=== PATIENT | female | born 1975 | race Asian ===

== ENCOUNTER 2020-08-28 04:47 | Inpatient (IN) | payer OTHER ==
[2020-08-27 11:27] VITALS: BMI 23.4
--- NOTE | 2020-08-28 07:38 | HP ---
History & Physical Update - History History: No Change - Physical Physical: No Change - Assessment Assessment: No Change - Plan Plan: No Change (S&P reviwed , no cahnges , for supracervical abdominal hyst erectomy, bilateral salpingectomy)
[2020-08-28] MEDS ORDERED: BUPIVACAINE LIPOSOME/PF (EXPAREL) 266 MG/20 ML VIAL ONE (10:22)
[2020-08-28] MEDS ORDERED: MIDAZOLAM HCL 2 MG/2 ML SINGLE DOSE VIAL ONE ×2 (10:24)
[2020-08-28] MEDS ORDERED: ROCURONIUM BROMIDE 100 MG/10 ML VIAL ONE (11:34)
[2020-08-28] MEDS ORDERED: LIDOCAINE HCL/PF 2% SDV 5ML VIAL ONE (11:36)
[2020-08-28] MEDS ORDERED: ceFAZolin SODIUM 1 GM VIAL IVPB ONE (11:50)
[2020-08-28] MEDS ORDERED: DEXAMETHASONE SOD PHOSPHATE 4 MG/1 ML VIAL ONE (11:56)
[2020-08-28] MEDS ORDERED: ceFAZolin SODIUM 1 GM VIAL ONE ×2 (11:58→17:28)
[2020-08-28] MEDS ORDERED: GLYCOPYRROLATE 0.2 MG/1 ML VIAL ONE (12:19)
[2020-08-28] MEDS ORDERED: NEOSTIGMINE METHYLSULFATE 0.5 MG/ML - 10 ML MDV ONE (12:19)
[2020-08-28] MEDS ORDERED: ONDANSETRON 4 MG/2 ML VIAL IVPUSH PRN ×2 (12:32→13:30)
[2020-08-28] MEDS ORDERED: ACETAMINOPHEN 325 MG TABLET (FP) PO PRN (12:32)
[2020-08-28] MEDS ORDERED: LACTATED RINGERS SOLUTION 1,000 ML IV SCH (12:45)
[2020-08-28] MEDS ORDERED: traMADol HCL 50 MG TABLET PO PRN (12:45)
[2020-08-28] MEDS ORDERED: oxyCODONE HCL 5 MG TABLET PO PRN ×4 (12:45→13:33)
[2020-08-28] MEDS ORDERED: IBUPROFEN 600 MG TABLET (FP) PO PRN (13:30)
--- NOTE | 2020-08-28 13:38 | OP ---
Operative Note - Note: Operative Date: 08/28/20 Pre-Operative Diagnosis: pelvic pain, fibroids, adenomyosis Operation: supra cervical abdominal hysterectomy, bilateral salpingectomy Findings: large uterus , RT para ovarian cyst, both ovaries normal Surgeon: Bony Hinojosa General Internist: Elaina Rosario Anesthesia: General Specimens Removed: uterus, both tubes , RTparaovarian cyst Estimated Blood Loss (mls): 150 Drains & Tubes with Location: emery Blood Volume Replaced (mls): 0 Operative Report Dictated: Yes
[2020-08-28] MEDS: IBUPROFEN 800 MG/8 ML IJ IVPB PRN (14:15)
--- NOTE | 2020-08-28 14:56 | OP ---
DATE OF OPERATION: 08/28/2020 PREOPERATIVE DIAGNOSIS: Pelvic pain, fibroid uterus, adenomyosis. POSTOPERATIVE DIAGNOSIS: Pelvic pain, fibroid uterus, adenomyosis. PROCEDURE: Supracervical abdominal hysterectomy and bilateral salpingectomy. SURGEON: Erick Cook MD STACKER STRAIGHTENER: Elaina Rosario MD ESTIMATED BLOOD LOSS: 150 mL. DESCRIPTION OF PROCEDURE: Patient was taken to the operating room and under adequate general anesthesia, a Pfannenstiel abdominal skin incision was made. Abdominal wall was cut layer by layer until peritoneum was exposed and incised. Upon entering the abdominal cavity, upper abdomen was checked, was normal. Bowels were packed away. There was a large uterus with mostly what appeared to be like adenomyosis. Both ovaries were normal. Both tubes were normal. Bladder was normal. The cul-de-sac was free of adhesions. Two Soumya were placed along the cornu region of the uterus, and the uterus was delivered. Both round ligaments were identified, clamped with Clara clamp and then cauterized with the LigaSure cautery and cut. Then the bladder flap was developed, and bladder was pushed down. Then both tubes were grasped with a [place] clamp, and along the mesosalpinx with LigaSure cauterized and the tubes were removed. Then a hole was made into the broad ligament. Uteroovarian ligament was clamped with Spenser clamp, cut, and the clamp replaced with 3-0 Vicryl ties and then with 2-0 Vicryl suture bilaterally. At this time bladder was further pushed down. Uterine artery was identified bilaterally, clamped with Spenser clamp, cut, and the clamp replaced with 0 Vicryl suture bilaterally. Paracervical area was clamped with Spenser clamp, cut, and the clamp replaced with 0 Vicryl suture bilaterally, and then the specimen was removed above the cervix. Then the cervix was sutured with interrupted suture of 1 Vicryl and hemostasis was established. No active bleeding was seen. All the lap pad, sponge, and instrument counts were correct. Pelvic cavity several times irrigated, and no active bleeding was seen, then peritoneum was closed with 0 Vicryl continuous suture. Muscles were brought together with interrupted suture of 0 Vicryl. Fascia was closed with 0 Vicryl continuous suture. Subcutaneous with interrupted suture of 0 Vicryl, and the skin was closed with 3-0 Vicryl subcuticular continuous suture. Patient tolerated the procedure well, left the OR in good condition. ERICK COOK M.D. [id number]
[2020-08-28] MEDS ORDERED: DEXTROSE 5%-WATER - 50 ML IVPB ONE (17:28)
[2020-08-28] MEDS: CEFAZOLIN 1 GM in DEXTROSE 5%-WATER - 50 ML IVPB SCH (17:38)
[2020-08-28] MEDS: ELECTROLYTE-148 SOLN 1,000 ML IV SCH (17:42)
[2020-08-28] MEDS ORDERED: IBUPROFEN 800 MG/8 ML IJ IVPB ONE (19:25)
[2020-08-28] MEDS ORDERED: ACETAMINOPHEN 1000 MG/100 ML VIAL (NON FORMULARY) IVPB ONE (19:25)
[2020-08-28] MEDS ORDERED: ROSUVASTATIN CA 40 MG TABLET PO SCH (22:00)
[2020-08-29] MEDS: ROSUVASTATIN CA 20 MG TABLET (FP) PO SCH ×2 (00:08→21:07)
[2020-08-29] MEDS: EZETIMIBE 10 MG TABLET (FP) PO SCH ×2 (00:08→21:07)
[2020-08-29] MEDS ORDERED: ceFAZolin SODIUM 1 GM VIAL ONE ×2 (01:11→09:07)
[2020-08-29] MEDS ORDERED: DEXTROSE 5%-WATER - 50 ML IVPB ONE ×2 (01:11→09:07)
[2020-08-29] MEDS: CEFAZOLIN 1 GM in DEXTROSE 5%-WATER - 50 ML IVPB SCH ×2 (01:23→09:10)
[2020-08-29] MEDS: IBUPROFEN 800 MG/8 ML IJ IVPB PRN (06:32)
[2020-08-29] MEDS ORDERED: PT OWN MED DRAWER 7, Y5N ONE (09:05)
[2020-08-29] MEDS: ENOXAPARIN NA (PORCINE) 40 MG/0.4 ML DISP.SYRIN SQ SCH (09:11)
--- NOTE | 2020-08-29 13:37 | PN ---
Progress Note (short form) - Note Progress Note: Anesthesia postop note 45 y/o F s/p GA/TAP blocks for supracervical hysterectomy POD#1, vss, aaox3, pain well controlled. No anesthesia complications.
[2020-08-29] MEDS ORDERED: BISACODYL 10 MG SUPP.RECT PR PRN (15:03)
[2020-08-29] MEDS: SIMETHICONE 80 MG TAB.CHEW (FP) PO PRN (15:19)
--- NOTE | 2020-08-29 15:46 | PN ---
Progress Note (short form) - Note Progress Note: pod 1 doing well, ambulating, voids ok ,no vaginal discharge Last Vital Signs Temp Pulse Resp BP Pulse Ox 98.5 F 74 18 102/64 98 08/29/20 14:21 08/29/20 14:21 08/29/20 14:21 08/29/20 14:21 08/29/20 14:21 abdomen soft, no distension, no cva , BS are present incison dry, clean no calf tenderness no vaginal discharge plan ambulate advance diet DVT prophylaxis pain management
[2020-08-29] MEDS: ELECTROLYTE-148 SOLN 1,000 ML IV SCH (19:04)
[2020-08-30 07:53] LABS: BASO % 0.5 % (0-2.0); EOS % 0.2 % (0-4.5); HEMATOCRIT 37.3 % (32.4-45.2); HEMOGLOBIN 12.7 GM/dL (10.7-15.3); LYMPH % 19.7 % (8-40); MCH 32.3 pg (25.7-33.7); MCHC 34.2 g/dl (32.0-36.0); MEAN CELL VOLUME 94.5 fl (80-96); MEAN PLT VOLUME 8.1 fl (7.5-11.1); MONO % 8.2 % (3.8-10.2); NEUT % 71.4 % (42.8-82.8); PLATELET COUNT 260 K/MM3 (134-434); RBC 3.95 M/mm3 (3.60-5.2); RDW 12.7 % (11.6-15.6); WHITE BLOOD COUNT 11.1 K/mm3 (4.0-10.0)
[2020-08-30 08:03] LABS: BLOOD UREA NITROGEN 9.1 mg/dL (7-18); CALCIUM 7.7 mg/dL (8.5-10.1); CREATININE 0.7 mg/dL (0.55-1.3); POTASSIUM 3.9 mmol/L (3.5-5.1)
[2020-08-30] MEDS: ENOXAPARIN NA (PORCINE) 40 MG/0.4 ML DISP.SYRIN SQ SCH (10:34)
[2020-08-30] MEDS: SIMETHICONE 80 MG TAB.CHEW (FP) PO PRN (10:35)
--- NOTE | 2020-08-30 14:38 | DS ---
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 Vital Signs: Vital Signs Temperature 98.2 F 08/30/20 10:30 Pulse Rate 76 08/30/20 10:30 Respiratory Rate 17 08/30/20 10:30 Blood Pressure 103/72 08/30/20 10:30 O2 Sat by Pulse Oximetry (%) 98 08/30/20 10:30 Constitutional: Yes: Well Nourished, No Distress, Calm Eyes: Yes: WNL, Conjunctiva Clear, EOM Intact HENT: Yes: WNL, Atraumatic, Normocephalic Neck: Yes: WNL, Supple, Trachea Midline Cardiovascular: Yes: WNL, Regular Rate and Rhythm Respiratory: Yes: WNL, Regular, CTA Bilaterally Gastrointestinal: Yes: WNL ...Rectal Exam: Yes: WNL Renal/: Yes: WNL Pelvis: Yes: WNL Breast(s): Yes: WNL Musculoskeletal: Yes: WNL Extremities: Yes: WNL Edema: No Integumentary: Yes: WNL Wound/Incision: Yes: Clean/Dry, Well Approximated, Sutures Intact Neurological: Yes: WNL, Alert, Oriented ...Motor Strength: WNL Psychiatric: Yes: WNL, Alert, Oriented Labs: CBC, BMP 08/30/20 05:25 08/30/20 05:25 Discharge Summary Problems reviewed: Yes Reason For Visit: FIBROIDS UTERUS Procedures: Principal: supracervical abdominal hysterectomy , bilateral salpingectomy Hospital Course: no complication Plan of Treatment: follow up office 2 weeks Condition: Good - Instructions Diet, Activity, Other Instructions: regular diet, no intercourse , follow up office 2 weeks, if fever, pain, heavy vaginal bleeding call Referrals: Bony Hinojosa MD [Staff Physician] - Disposition: HOME - Home Medications Comprehensive Discharge Medication List: Ambulatory Orders Ezetimibe [Zetia] 10 mg PO HS 08/27/20 Rosuvastatin Calcium [Crestor] 40 mg PO HS 08/27/20 Ibuprofen [Motrin -] 600 mg PO QID #28 tablet 08/28/20
[2020-08-30 14:54] VITALS: BP 112/70; PULSE 70; TEMP 97.5
--- NOTE | 2020-08-31 17:26 | PATH ---
Surgical Pathology Report Patient Name: TIANA QUESADA [facility]. Rec. #: [id number] /Age/Gender: 1975 (Age: 45) / F Account: [id number] Location: [facility] MED/SURG Taken: 08/28/2020 Received: 08/28/2020 Reported: 08/31/2020 Physicians: Bony Hinojosa M.D. Specimen(s) Received LEFT FALLOPIAN TUBE, RIGHT FALLOPIAN TUBE, UTERUS Clinical History Uterine fibroids Final Diagnosis LEFT AND RIGHT FALLOPIAN TUBES, UTERUS, SUPRACERVICAL HYSTERECTOMY AND BILATERAL SALPINGECTOMY: LEIOMYOMATA. PROLIFERATIVE TYPE ENDOMETRIUM. ENDOCERVICAL TISSUE AT SURGICAL STUMP SHOWING NO SIGNIFICANT PATHOLOGIC CHANGE. PORTIONS OF FALLOPIAN TUBES WITH PARATUBAL CYST. Electronically Signed Melany Johansen M.D. Gross Description Received in formalin labeled "left fallopian tube, right fallopian tube, uterus," is a 503 g supracervically amputated uterus with no attached adnexa. The bilateral, undesignated fallopian tubes are separately received within the same container. The uterus measures 12 cm from superior to inferior, 9.5 cm from left to right and 8 cm from anterior to posterior. The serosa is valles shahid with focal bulging subserosal nodules. The endometrial cavity measures 4.5 cm in length and 3 cm from cornu to cornu. The endometrium is valles brown and averages 0.1 cm in thickness. There is an 8 cm in greatest dimension intramural nodule present in the fundus. The cut surface of the subserosal nodules and intramural nodule is valles and rubbery with whorled architecture. No areas of hemorrhage or necrosis are identified. The remaining myometrium is valles-pink and averages 2.2 cm in thickness. The shorter separately received fallopian tube is fimbriated and measures 3 cm in length. The outer surface is schaffer purple. Sectioning reveals an unremarkable lumen. The longer separately received, fimbriated, fallopian tube measures 4.5 cm in length. The outer surface is shahid purple and smooth. There is a 2 cm in greatest dimension paratubal cyst attached. Sectioning of the fallopian tube reveals an unremarkable lumen. Torpedo Worker sections are submitted in 14 cassettes as follows: 1-cervical stump margin of resection; 2-8-waohtkgfcpapho; 6-9-large intramural fundic nodule; 10-subserosal nodules; 11-shorter fallopian tube fimbria; 12-cross sections of shorter fallopian tube; 13-longer fallopian tube fimbria; 14-cross sections of longer fallopian tube and paratubal cyst. 08/29/2020 [facility]08/29/2020
== END 2020-08-30 17:27 | disposition home or self-care (01) | DRG 743 ==
LOC: J2C 04:47 → J8W 15:45
PROVIDERS: ADMIT Obstetrics & Gynecology; ATTEND Obstetrics & Gynecology
PROC: 0UT70ZZ Resection of Bilateral Fallopian Tubes, Open Approach (ICD-10-PCS; 2020-08-28)
PROC: 0UT90ZL Resection of Uterus, Supracervical, Open Approach (ICD-10-PCS; principal; 2020-08-28 11:00)
DX: D25.9 Leiomyoma of uterus, unspecified (principal); N80.0 Endometriosis of uterus; N83.201 Unspecified ovarian cyst, right side; E78.5 Hyperlipidemia, unspecified
CPT/HCPCS: 36415; 80048; 84703; 85025; 86850; 86900; 86901; 86922; 88307-TC; 94010; 94760